=== PATIENT | female | born 1955 | race Caucasian/White ===

== ENCOUNTER 2016-09-12 07:16 | Outpatient (CLI) | payer OTHER ==
[2016-03-24 18:38] VITALS: BMI 25.8
[2016-09-12 07:30] LABS: BASOPHILS % (AUTO) 0.4 % (0.0-3.0); EOSINOPHILS # (AUTO) 0.1 K/ul (0.0-0.7); EOSINOPHILS % (AUTO) 1.6 % (0.0-7.0); HEMATOCRIT 38.8 % (37.0-47.0); HEMOGLOBIN 13.5 g/dl (12.0-16.0); IMMATURE GRANULOCYTE % (AUTO) 0.2 % (0.0-5.0); LYMPHOCYTES # (AUTO) 1.8 K/uL (0.60-3.4); LYMPHOCYTES % (AUTO) 36.4 (10.0-50.0); MEAN CORPUSCULAR HEMOGLOBIN 30.3 pg (27.0-31.0); MEAN CORPUSCULAR HGB CONC 34.8 (31.8-35.4); MONOCYTES # (AUTO) 0.4 K/uL (0.4-2.0); MONOCYTES % (AUTO) 7.7 (0-10); NEUTROPHILS # (AUTO) 2.7 K/ul (2.0-6.9); NEUTROPHILS % (AUTO) 53.7; PLATELET COUNT 141 10^3/uL (140-440); RED BLOOD COUNT 4.46 10^6/ul (4.20-5.40); WHITE BLOOD COUNT 5.06 K/ul (4.6-10.2)
[2016-09-12 08:10] LABS: ALBUMIN 3.9 g/dL (3.4-5.0); ALBUMIN/GLOBULIN RATIO 1.39; ANION GAP 12.8; BILIRUBIN,TOTAL 0.61 mg/dL (0.00-1.20); BUN/CREATININE RATIO 16.48; CALCIUM 9.5 mg/dL (8.2-10.2); CHOL/HDL RATIO 3.6 (4.5-5.5); CREATININE 0.91 mg/dL (0.60-1.30); POTASSIUM 3.8 mmol/L (3.5-5.10); TOTAL PROTEIN 6.7 g/dL (6.4-8.2)
== END 2016-09-12 07:17 | disposition home or self-care (01) ==
LOC: LAB 07:16
PROVIDERS: ATTEND Internal Medicine
DX: E78.5 Hyperlipidemia, unspecified (principal); I10 Essential (primary) hypertension; E03.9 Hypothyroidism, unspecified
CPT/HCPCS: 36415; 80053; 80061; 82306; 82607; 83036; 84439; 84443; 85025

== ENCOUNTER 2016-11-17 08:59 | Outpatient (CLI) ==
[2016-03-24 18:38] VITALS: BMI 25.8
== END 2016-11-17 09:00 | disposition home or self-care (01) ==
LOC: LAB 08:59
PROVIDERS: ATTEND Urology
DX: R31.29 Other microscopic hematuria (principal)
CPT/HCPCS: 36415

== ENCOUNTER 2017-04-04 07:15 | Outpatient (CLI) ==
[2016-03-24 18:38] VITALS: BMI 25.8
[2017-04-04 07:34] LABS: BASOPHILS % (AUTO) 0.3 % (0.0-3.0); EOSINOPHILS # (AUTO) 0.1 K/ul (0.0-0.7); EOSINOPHILS % (AUTO) 1.5 % (0.0-7.0); HEMATOCRIT 40.4 % (37.0-47.0); HEMOGLOBIN 14.3 g/dl (12.0-16.0); LYMPHOCYTES # (AUTO) 1.4 K/uL (0.60-3.4); LYMPHOCYTES % (AUTO) 41.9 (10.0-50.0); MEAN CORPUSCULAR HEMOGLOBIN 30.4 pg (27.0-31.0); MEAN CORPUSCULAR HGB CONC 35.4 (31.8-35.4); MEAN CORPUSCULAR VOLUME 85.8 fl (81.0-99.0); MONOCYTES # (AUTO) 0.5 K/uL (0.4-2.0); MONOCYTES % (AUTO) 15.5 (0-10); NEUTROPHILS # (AUTO) 1.4 K/ul (2.0-6.9); NEUTROPHILS % (AUTO) 40.8; PLATELET COUNT 145 10^3/uL (140-440); RED BLOOD COUNT 4.71 10^6/ul (4.20-5.40); WHITE BLOOD COUNT 3.41 K/ul (4.6-10.2)
[2017-04-04 08:14] LABS: ALBUMIN 4.1 g/dL (3.4-5.0); ALBUMIN/GLOBULIN RATIO 1.24; BILIRUBIN,TOTAL 0.81 mg/dL (0.00-1.20); BUN/CREATININE RATIO 23.07; CALCIUM 9.9 mg/dL (8.2-10.2); CHOL/HDL RATIO 3.5 (4.5-5.5); CREATININE 0.91 mg/dL (0.60-1.30); TOTAL PROTEIN 7.4 g/dL (6.4-8.2)
== END 2017-04-04 07:16 | disposition home or self-care (01) ==
LOC: LAB 07:15
PROVIDERS: ATTEND Internal Medicine
DX: E78.5 Hyperlipidemia, unspecified (principal); E03.9 Hypothyroidism, unspecified; I10 Essential (primary) hypertension
CPT/HCPCS: 36415; 80053; 80061; 82306; 82607; 83036; 84439; 84443; 85025

== ENCOUNTER 2017-06-01 08:52 | Outpatient (CLI) ==
[2016-03-24 18:38] VITALS: BMI 25.8
== END 2017-06-01 08:53 | disposition home or self-care (01) ==
LOC: LAB 08:52
PROVIDERS: ATTEND Urology
DX: R31.29 Other microscopic hematuria (principal)

== ENCOUNTER 2018-02-08 11:23 | Outpatient (CLI) | payer OTHER ==
[2016-03-24 18:38] VITALS: BMI 25.8
--- NOTE | 2018-02-08 15:31 | DI ---
Exam: Right foot three-view. HISTORY: Right foot pain. Findings: Three views of the right foot are submitted. These demonstrate no acute fracture or dislo cation. There is no osseous erosion or radiodense foreign body. A small plantar calcaneal spur is s een. No focal soft tissue swelling. Impressions: No acute fracture or dislocation involving the right foot. Small plantar calcaneal spur.
--- NOTE | 2018-02-08 15:38 | DI ---
EXAM: Right ankle. Three-view HISTORY: Pain in right foot COMPARISON: None FINDINGS: No fracture or dislocation. Small plantar calcaneal spur. Ankle mortise is symmetric. No focal soft tissue abnormality. IMPERSSION: Small plantar calcaneal spur.
== END 2018-02-08 11:24 | disposition home or self-care (01) ==
LOC: RAD 11:23
PROVIDERS: ATTEND Physician Assistant
DX: M79.671 Pain in right foot (principal)

== ENCOUNTER 2018-03-03 07:33 | Outpatient (CLI) ==
[2016-03-24 18:38] VITALS: BMI 25.8
== END 2018-03-03 07:34 | disposition home or self-care (01) ==
LOC: LAB 07:33
PROVIDERS: ATTEND Internal Medicine
DX: E78.49 Other hyperlipidemia (principal); E03.9 Hypothyroidism, unspecified
CPT/HCPCS: 36415; 80061; 84443